=== PATIENT | female | born 1990 | race Caucasian/White ===

== ENCOUNTER 2023-08-05 08:47 | Emergency (ER) | payer OTHER ==
[2023-08-05 09:03] VITALS: RESP 20; TEMP 97.9
[2023-08-05] MEDS ORDERED: TORAdol 30 mg Injection IM ONE (09:18)
--- NOTE | 2023-08-05 09:23 | ERPHSYRPT ---
- History of Present Illness Source: patient Exam Limitations: no limitations Patient Subjective Stated Complaint: Pt states "I have horrible pain in my left back area." Triage Nursing Assessment: Pt presented alert and oriented X 3, skin pwd. Pt ambulates with an upright steady gait, able to speak in clear full senteces. Physician History: Patient is a 33-year-old female with left costovertebral angle pain Since 5 AM this morning.Pain is rated 9 out of 10 and described as sharp- stabbing. Nothing seems to make the pain better or worse. Patient works at [employer] but denies acute injury. Dysuria, hematuria, and fever are all denied. The pain does not radiate. She has had nausea without vomiting.Past medical history includes Crohn's disease without any current treatment. Timing/Duration: other (5 AM today) Method of Injury: other (Patient denies acute injury) Quality: dull, aching, stabbing Back Pain Location: paraspinous muscles Severity of Pain-Max: severe Severity of Pain-Current: severe Modifying Factors: Improves With: nothing Associated Symptoms: denies symptoms Allergies/Adverse Reactions: azithromycin Adverse Reaction (Intermediate, Verified 08/05/23 09:04) abdominal pain Home Medications: Valacyclovir HCl [Valacyclovir] 500 mg PO DAILY 08/05/23 [History] Venlafaxine HCl ER 75 mg [Effexor XR 75 MG] 75 mg PO DAILY 08/05/23 [History] glyBURIDE [Glyburide] 1.25 mg PO DAILY 08/05/23 [History] Hx Tetanus, Diphtheria Vaccination/Date Given: No Hx Influenza Vaccination/Date Given: No Hx Pneumococcal Vaccination/Date Given: No Immunizations Up to Date: No Travel Risk - International Travel Have you traveled outside of the country in past 3 weeks: No - Coronavirus Screening Are you exhibiting any of the following symptoms?: No Close contact with a COVID-19 positive Pt in past 14-21 Days: No - Vaccine Status Have you recieved a Covid-19 vaccination: Yes 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 - Vaccination Dates Date of 2cond Vaccination (if applicable): 2020 - Review of Systems Constitutional: No Symptoms Eyes: No Symptoms Ears, Nose, & Throat: No Symptoms Respiratory: No Symptoms Cardiac: No Symptoms Abdominal/Gastrointestinal: No Symptoms Genitourinary Symptoms: No Symptoms Musculoskeletal: No Symptoms, Back Pain Skin: No Symptoms Neurological: No Symptoms Psychological: No Symptoms Endocrine: No Symptoms Hematologic/Lymphatic: No Symptoms Immunological/Allergic: No Symptoms - Past Medical History Pertinent Past Medical History: Yes GI Medical History: Crohns Disease, GERD - Past Surgical History Past Surgical History: Yes Other Surgical History: c section x 2. janeth. tubal. scopes - Social History Smoking Status: Never smoker Exposure to second hand smoke: Yes Drug Use: none Patient Lives Alone: No - Female History Hx Last Menstrual Period: 07/30/2023 Hx Now: No - Nursing Vital Signs Nursing Vital Signs: Initial Vital Signs Temperature 97.9 F 08/05/23 08:57 Pulse Rate 77 08/05/23 08:57 Respiratory Rate 20 08/05/23 08:57 Blood Pressure 138/65 08/05/23 08:57 O2 Sat by Pulse Oximetry 99 08/05/23 08:57 Pain Scale Pain Intensity 0 Mild hypertension - Physical Exam General Appearance: mild distress (Mild distress due to pain.) Eye Exam: PERRL/EOMI, eyes nml inspection Ears, Nose, Throat Exam: normal ENT inspection, TMs normal, pharynx normal, moist mucous membranes Neck Exam: normal inspection, non-tender, supple, full range of motion, No meningismus, No mass, No Brudzinski, No Kernig's Respiratory Exam: normal breath sounds, lungs clear, airway intact Cardiovascular Exam: regular rate/rhythm, normal heart sounds, normal peripheral pulses, capillary refill <2 sec, No murmur Gastrointestinal Exam: soft, normal bowel sounds, No tenderness Back Exam: CVA tenderness (Mild left costovertebral angle this tenderness to palpation.) Extremity Exam: normal inspection, normal range of motion Peripheral Pulses: carotid (R): 2+, carotid (L): 2+ Neurologic Exam: alert, oriented x 3, cooperative, chief scientist II-XII nml as tested, normal mood/affect, nml cerebellar function, nml station & gait, sensation nml Skin Exam: normal color, warm, No rash Lymphatic Exam: No adenopathy SpO2 Interpretation: normal SpO2: 99 O2 Delivery: Room Air - Course Nursing assessment & vital signs reviewed: Yes - CT Exams Abdomen/Pelvis CT Interpretation: Discussed w/radiologist (4 mm distal left ureteral stone with mild hydro.) Ordered Tests: Active Orders 24 hr Category Date Time Status IV Insertion STAT Care 08/05/23 10:51 Completed ABDOMEN AND PELVIS W/0 CONTRAS [CT] Stat Exams 08/05/23 09:19 Completed CBC W DIFF Stat Lab 08/05/23 11:01 Completed CMP Stat Lab 08/05/23 11:01 Completed CULTURE,URINE Stat Lab 08/05/23 09:25 Received HCG QUALITATIVE, URINE Stat Lab 08/05/23 09:33 Completed Lactic Acid Stat Lab 08/05/23 11:00 Completed UA W/RFX UR CULTURE Stat Lab 08/05/23 09:25 Completed Medication Summary Discontinued Medications Generic Name Dose Route Start Last Admin Trade Name Freq PRN Reason Stop Dose Admin Sodium Chloride 1,000 mls @ 999 mls/hr 08/05/23 10:51 08/05/23 11:09 Sodium Chloride 0.9% 1000 Ml IV 08/05/23 11:51 999 mls/hr .Q1H1M STA Administration Ceftriaxone Sodium/Dextrose 1 g in 50 mls @ 100 mls/hr 08/05/23 10:51 08/05/23 11:45 Rocephin 1 Gm-D5w 50 Ml Bag IV 08/05/23 11:20 Infused STAT STA Infusion Sodium Chloride Confirm 08/05/23 11:06 Sodium Chloride 0.9% 1000 Ml Administered 08/05/23 11:07 Dose 1,000 mls @ ud .ROUTE .STK-MED ONE Ceftriaxone Sodium/Dextrose Confirm 08/05/23 11:06 Rocephin 1 Gm-D5w 50 Ml Bag Administered 08/05/23 11:07 Dose 1 g in 50 mls @ ud IV .STK-MED ONE Ketorolac Tromethamine 60 mg 08/05/23 09:18 08/05/23 09:27 Ketorolac Tromethamine 30 Mg/Ml Inj IM 08/05/23 09:19 60 mg STAT ONE Administration Ketorolac Tromethamine Confirm 08/05/23 09:26 Ketorolac Tromethamine 30 Mg/Ml Inj Administered 08/05/23 09:27 Dose 60 mg .ROUTE .STK-MED ONE Lab/Rad Data: Laboratory Result Diagrams 08/05/23 11:01 08/05/23 11:01 Laboratory Results 08/05/23 08/05/23 08/05/23 Range/Units 11:01 11:01 11:00 WBC 10.2 (4.0-10.5) x10^3/uL RBC 4.00 L (4.1-5.4) x10^6/uL Hgb 12.2 (12.0-16.0) g/dL Hct 36.7 (35-47) % MCV 91.8 (78-100) fL MCH 30.5 (26-32) pg MCHC 33.2 (32-36) g/dL RDW 11.9 (11.5-14.0) % Plt Count 298 (150-450) x10^3/uL MPV 10.0 (7.5-11.0) fL Gran % 71.1 H (36.0-66.0) % Immature Gran % (Auto) 0.5 H (0.00-0.4) % Nucleat RBC Rel Count 0.0 (0.00-0.1) % Eos # (Auto) 0.10 (0-0.5) x10^3/uL Immature Gran # (Auto) 0.05 H (0.00-0.03) x10^3u/L Absolute Lymphs (auto) 2.30 (1.0-4.6) x10^3/uL Absolute Monos (auto) 0.46 (0.0-1.3) x10^3/uL Absolute Nucleated RBC 0.00 (0.00-0.01) x10^3u/L Lymphocytes % 22.6 L (24.0-44.0) % Monocytes % 4.5 (0.0-12.0) % Eosinophils % 1.0 (0.00-5.0) % Basophils % 0.3 (0.0-0.4) % Absolute Granulocytes 7.24 H (1.4-6.9) x10^3/uL Basophils # 0.03 (0-0.4) x10^3/uL Sodium 138 (137-145) mmol/L Potassium 4.2 (3.5-5.1) mmol/L Chloride 102 (98-107) mmol/L Carbon Dioxide 27 (22-30) mmol/L Anion Gap 12.7 (5-15) MEQ/L BUN 12 (7-17) mg/dL Creatinine 0.57 (0.52-1.04) mg/dL Estimated GFR 123.0 ML/MIN Glucose 108 H (74-106) mg/dL Lactic Acid 1.6 (0.4-2.0) Calcium 9.3 (8.4-10.2) mg/dL Total Bilirubin 0.90 (0.2-1.3) mg/dL AST 22 (14-36) U/L ALT 22 (0-35) U/L Alkaline Phosphatase 54 (38-126) U/L Serum Total Protein 7.6 (6.3-8.2) g/dL Albumin 4.4 (3.5-5.0) g/dL Urine Color (Yellow) Urine Appearance (Clear) Urine pH (4.6-8.0) Ur Specific [place] (1.005-1.030) Urine Protein (Negative) Urine Glucose (UA) (Negative) mg/dL Urine Ketones (Negative) Urine Blood (Negative) Urine Nitrite (Negative) Urine Bilirubin (Negative) Urine Urobilinogen (0.2) mg/dL Ur Leukocyte Esterase (Negative) U Hyaline Cast (Auto) (0-2) /LPF Urine Microscopic RBC (0-5) /HPF Urine Microscopic WBC (0-5) /HPF Ur Epithelial Cells (None Seen) /HPF Urine Bacteria (None Seen) /HPF Urine Culture Reflexed (NO) Urine HCG, Qual (NEGATIVE) 08/05/23 08/05/23 Range/Units 09:33 09:25 WBC (4.0-10.5) x10^3/uL RBC (4.1-5.4) x10^6/uL Hgb (12.0-16.0) g/dL Hct (35-47) % MCV (78-100) fL MCH (26-32) pg MCHC (32-36) g/dL RDW (11.5-14.0) % Plt Count (150-450) x10^3/uL MPV (7.5-11.0) fL Gran % (36.0-66.0) % Immature Gran % (Auto) (0.00-0.4) % Nucleat RBC Rel Count (0.00-0.1) % Eos # (Auto) (0-0.5) x10^3/uL Immature Gran # (Auto) (0.00-0.03) x10^3u/L Absolute Lymphs (auto) (1.0-4.6) x10^3/uL Absolute Monos (auto) (0.0-1.3) x10^3/uL Absolute Nucleated RBC (0.00-0.01) x10^3u/L Lymphocytes % (24.0-44.0) % Monocytes % (0.0-12.0) % Eosinophils % (0.00-5.0) % Basophils % (0.0-0.4) % Absolute Granulocytes (1.4-6.9) x10^3/uL Basophils # (0-0.4) x10^3/uL Sodium (137-145) mmol/L Potassium (3.5-5.1) mmol/L Chloride (98-107) mmol/L Carbon Dioxide (22-30) mmol/L Anion Gap (5-15) MEQ/L BUN (7-17) mg/dL Creatinine (0.52-1.04) mg/dL Estimated GFR ML/MIN Glucose (74-106) mg/dL Lactic Acid (0.4-2.0) Calcium (8.4-10.2) mg/dL Total Bilirubin (0.2-1.3) mg/dL AST (14-36) U/L ALT (0-35) U/L Alkaline Phosphatase (38-126) U/L Serum Total Protein (6.3-8.2) g/dL Albumin (3.5-5.0) g/dL Urine Color Dark Yellow A (Yellow) Urine Appearance Turbid A (Clear) Urine pH 5.5 (4.6-8.0) Ur Specific [place] >=1.030 A (1.005-1.030) Urine Protein Trace A (Negative) Urine Glucose (UA) Negative (Negative) mg/dL Urine Ketones Trace A (Negative) Urine Blood Large A (Negative) Urine Nitrite Negative (Negative) Urine Bilirubin Negative (Negative) Urine Urobilinogen 1.0 A (0.2) mg/dL Ur Leukocyte Esterase Trace A (Negative) U Hyaline Cast (Auto) NONE SEEN (0-2) /LPF Urine Microscopic RBC >100 A (0-5) /HPF Urine Microscopic WBC 11-20 A (0-5) /HPF Ur Epithelial Cells Moderate A (None Seen) /HPF Urine Bacteria Few A (None Seen) /HPF Urine Culture Reflexed YES (NO) Urine HCG, Qual NEGATIVE (NEGATIVE) - Progress Progress Note: 08/05/23 12:31 Nursing note and vital signs reviewed. No food or housing insecurities noted. All lab results reviewed and shared with patient. CT results reviewed and shared with patient. Patient given IM Toradol with almost complete relief in pain early in visit. 1 L normal saline bolus. 1 g IV Rocephin given. Patient's pain much improved upon discharge. Patient afebrile without signs of sepsis during her stay. Patient advised to follow-up with her family MD early next week. Patient also advised to return to ER for increasing pain or temperature greater 100.5. Counseled pt/family regarding: lab results, diagnosis, need for follow-up, rad results Medical Desision Making - Diagnostic Testing Diagnostic test were ordered, analyzed, and reviewed by me: Yes Radiological Interpretation: Reviewed by me - Risk of complications The pt has a mod risk of morbidity or mortality based on: Need for prescription drug management - Departure Departure Disposition: Home Clinical Impression: Ureterolithiasis, Urinary tract infection Condition: Stable Critical Care Time: No Referrals: DEVIN VALDEZ [COURTESY STAFF] - Follow up/PCP as directed Instructions: Urinary Tract Infection, Adult (DC), Renal Colic (DC) Additional Instructions: Strain all your urine. Bactrim twice a day for 5 days. Mauldin as needed for pain. Please take a stool softener with [place] as narcotics can cause constipation. Return to ER for increasing pain or temperature greater 100.5. Follow-up with your family MD early next week. Prescriptions: Hydrocodone/Acetaminophen [Hydrocodone-Acetamin 5-325 mg] 1 tab PO Q4HPRN PRN #5 tablet MDD 4 PRN Reason: Pain Smz/Tmp Ds Tablet [Bactrim Ds Tablet] 1 tab PO Q12H 5 Days #10 tablet
[2023-08-05] MEDS ORDERED: TORAdol 30 mg Injection ONE (09:26)
[2023-08-05 09:36] LABS: HCG URINE TEST NEGATIVE (NEGATIVE)
[2023-08-05 09:41] LABS: Appearance Turbid (Clear); Bacteria Few /HPF (None Seen); Bilirubin Negative (Negative); Blood Large (Negative); Epithelial Cells Moderate /HPF (None Seen); Glucose, Urine Negative (Negative); Hyaline Casts NONE SEEN /LPF (0-2); Ketones Trace (Negative); Leukocyte Esterase Trace (Negative); Nitrite Negative (Negative); Ph 5.5 (4.6-8.0); Protein,Urine Dip Trace (Negative); RBC >100 /HPF (0-5); Specific Gravity >=1.030 (1.005-1.030)
[2023-08-05 09:42] LABS: ADD URINE CULTURE? YES (NO)
[2023-08-05 10:16] VITALS: PULSE 56
--- NOTE | 2023-08-05 10:47 | XRAY ---
Indication: Left costophrenic angle pain. History Crohn's disease. Multiple contiguous axial images obtained through the abdomen and pelvis without contrast using renal stone protocol. Comparison: None Lung bases demonstrate minimal dependent atelectasis. Heart not enlarged. Distal left ureter demonstrates 3-4 mm calculus just proximal to UVJ. Proximal left ureter is minimally prominent along with minimal hydronephrosis consistent with partial obstructive uropathy. No renal calculus or evidence for obstructive uropathy on the right. Noncontrasted stomach and bowel loops appear nonobstructed with normal appendix. Right lobe liver demonstrates 1 cm cyst versus hemangioma. 2.3 cm dominant left ovary cyst. Previous cholecystectomy. No free fluid/air. Remaining liver, pancreas, spleen, adrenal glands, kidneys, ureters, bladder, uterus, and aorta are unremarkable for noncontrast exam. Osseous structures intact. Impression: 1. 3-4 mm distal left ureter calculus producing minimal obstructive uropathy. 2. Incidental small hepatic cyst versus hemangioma and dominant left ovary cyst.
[2023-08-05] MEDS ORDERED: Sodium Chloride 0.9% 1000 ML 1,000 ML IV STA (10:51)
[2023-08-05] MEDS ORDERED: ROCEPHIN 1 Gm-D5w 50 ml Bag** 1 G/50 ML IVPB IV STA (10:51)
[2023-08-05 11:05] LABS: Absolute Neutrophil Ct (ANC) 7.24 x10^3/uL (1.4-6.9); BASOPHIL % 0.3 % (0.0-0.4); Basophil (Absolute #) 0.03 x10^3/uL (0-0.4); Hematocrit 36.7 % (35-47); Hemoglobin 12.2 g/dL (12.0-16.0); IMMATURE GRAN # 0.05 x10^3u/L (0.00-0.03); IMMATURE GRAN % 0.5 % (0.00-0.4); Lymphocytes % 22.6 % (24.0-44.0); Mean Cell Volume 91.8 fL (78-100); Mean Corpuscular Hemoglobin 30.5 pg (26-32); Mean Corpuscular Hgb Concent. 33.2 g/dL (32-36); Monocyte (Absolute #) 0.46 x10^3/uL (0.0-1.3); Monocytes % 4.5 % (0.0-12.0); Neutrophil % 71.1 % (36.0-66.0); Platelet Count 298 x10^3/uL (150-450); Red Cell Distribution Width 11.9 % (11.5-14.0); White Blood Count 10.2 x10^3/uL (4.0-10.5)
[2023-08-05] MEDS ORDERED: ROCEPHIN 1 Gm-D5w 50 ml Bag** 1 G/50 ML IVPB IV ONE (11:06)
[2023-08-05] MEDS ORDERED: Sodium Chloride 0.9% 1000 ML 1,000 ML ONE (11:06)
[2023-08-05 11:12] VITALS: BP 117/63
[2023-08-05 11:19] LABS: ALBUMIN 4.4 g/dL (3.5-5.0); ANION GAP 12.7 MEQ/L (5-15); BILIRUBIN,TOTAL 0.9 mg/dL (0.2-1.3); Calcium 9.3 mg/dL (8.4-10.2); Creatinine 1 0.57 mg/dL (0.52-1.04); Potassium 4.2 mmol/L (3.5-5.1); Total Protein 7.6 g/dL (6.3-8.2)
[2023-08-05 11:58] VITALS: O2SAT 99
== END 2023-08-05 12:11 | disposition home or self-care (01) ==
LOC: ED 08:47
DX: N13.2 Hydronephrosis with renal and ureteral calculous obstruction (principal); N39.0 Urinary tract infection, site not specified; R10.9 Unspecified abdominal pain; R11.0 Nausea; Z79.891 Long term (current) use of opiate analgesic; Z79.84 Long term (current) use of oral hypoglycemic drugs; Z79.899 Other long term (current) drug therapy
CPT/HCPCS: 36000; 36415; 74176; 80053; 81001; 81025; 83605; 85025; 87086; 96365; 96372; 99284; J0696; J1885